=== PATIENT | female | born 1940 | race Caucasian/White ===

== ENCOUNTER → 2016-08-05 | Outpatient (CLI) | payer OTHER, BC ==
[~2016-08-05] MED LIST: GADOBUTROL 10 ML VIAL IVP ONE
--- NOTE | 2016-08-05 10:33 | MR ---
MRI of the Brain (Without and With Contrast) at 0808 Hours Clinical Indications: R51, severe headache. Technique: T1-weighted images were acquired axially and sagittally from the foramen magnum to the ve rtex. Axial fast inversion-recovery, fast T2-weighted, and diffusion-weighted axial images were obta ined without contrast. Postcontrast axial and coronal images with the uneventful intravenous administ ration of 6 mL Gadavist contrast. Findings: The ventricles, cisterns, and sulci are widened consistent with atrophy. No hydrocephalus , midline shift, herniation, or epidural/subdural hematomas. No intracranial hemorrhage or masses. Di ffusion-weighted images demonstrate no acute infarct. Cerebellar tonsils are in normal position. Pitu itary gland is normal in size. Normal signal flow-void in the superior sagittal sinus, basilar artery , and bilateral internal carotid arteries indicating patency. Several nonspecific bilateral cerebral white matter and brainstem hyperintense T2/FLAIR signal abnormalities without mass effect or enhancem ent. Postcontrast images demonstrate no enhancing lesions or abnormal leptomeningeal enhancement. Par anasal sinuses and mastoid air cells are clear. Postsurgical changes consistent with previous right u ncinectomy and middle turbinectomy. Nasal septal deviation to the left. No sinusitis. Partial visualization of cervical spondylosis at C3-C4, C4-C5 and C5-C6 resulting in cord compression at C4-C5. Impression: 1. Mild atrophy. 2. No acute hemorrhage, definite acute infarct, hydrocephalus or mass effect. 3. Multiple nonspecific hyperintense T2/FLAIR signal abnormalities in the white matter of bilateral c erebral hemispheres. Differential diagnosis includes severe microvascular ischemic gliosis, post-infe ctious/post-inflammatory sequela, or migraine-related sequela. 4. No hemorrhage, hydrocephalus, sinusitis, or superior sagittal sinus thrombosis. 5. No enhancing lesions or abnormal leptomeningeal enhancement. 6. Severe cervical spondylosis with cord compression at C4-C5. Consider MRI cervical spine for furthe r evaluation.
== END ==
LOC: FIMAGING 07:45
PROVIDERS: ATTEND Internal Medicine
DX: R51 Headache (principal)
CPT/HCPCS: 70553; A9585

== ENCOUNTER → 2016-09-09 | Outpatient (CLI) | payer OTHER, BC | LOC: FIMAGING 07:54 | PROVIDERS: ATTEND Physician Assistant | DX: M50.31 Other cervical disc degeneration, high cervical region (principal); M47.892 Other spondylosis, cervical region; M48.02 Spinal stenosis, cervical region ==

== ENCOUNTER → 2017-12-04 | Outpatient (CLI) | payer OTHER, BC | LOC: FIMAGING 08:20 | PROVIDERS: ATTEND Internal Medicine | DX: M43.12 Spondylolisthesis, cervical region (principal); M48.02 Spinal stenosis, cervical region; M24.28 Disorder of ligament, vertebrae; M50.321 Other cervical disc degeneration at C4-C5 level ==

== ENCOUNTER → 2018-07-13 | Outpatient (CLI) | payer OTHER, BC ==
[~2018-07-13] MED LIST changes: +BUPIVACAINE 0.25% 30 ML SDV ONE; -GADOBUTROL 10 ML VIAL IVP ONE; +IOPAMIDOL (ISOVUE 370) 100 ML BTL IV ONE; +LIDOCAINE 1% 300 MG/30 ML SDV ONE
[2018-07-13 14:22] LABS: PLATELET COUNT 245 10^3/uL (150-400)
== END ==
LOC: FIMAGING 13:31
PROVIDERS: ATTEND Orthopaedic Surgery
PROC: 0M9 Bursae and Ligaments, Drainage (ICD-10-PCS; principal; 2018-07-13)
DX: M16.12 Unilateral primary osteoarthritis, left hip (principal); Z86.19 Personal history of other infectious and parasitic diseases
CPT/HCPCS: 20611; 76882; Q9967

== ENCOUNTER 2018-07-23 08:48 | Inpatient (IN) | payer OTHER, BC ==
[~2018-07-23 08:48] MED LIST changes: -BUPIVACAINE 0.25% 30 ML SDV ONE; -IOPAMIDOL (ISOVUE 370) 100 ML BTL IV ONE; -LIDOCAINE 1% 300 MG/30 ML SDV ONE; +POVIDONE-IODINE 20 ML in SODIUM CL IRRIG SOLUTION 500 ML IRR ONE; +ROPIVACAINE 0.2% 80 MG, EPINEPHrine 0.2 MG, KETOROLAC TROMETHAMINE 30 MG in SYRINGE 0 ML IU ONE; +TRANEXAMIC ACID 1,000 MG in NS 100 ML IV ONE
[2018-07-23] MEDS ORDERED: FAMOTIDINE 20 MG TAB PO ONE (10:01)
[2018-07-23] MEDS ORDERED: ACETAMINOPHEN 325 MG TAB PO ONE (10:01)
[2018-07-23] MEDS ORDERED: DEXAMETHASONE 4 MG/ML VIAL IVP ONE (10:01)
[2018-07-23] MEDS ORDERED: GABAPENTIN 300 MG CAP PO ONE (10:01)
[2018-07-23] MEDS ORDERED: ONDANSETRON 4 MG/2 ML VIAL IVP ONE (10:01)
[2018-07-23] MEDS ORDERED: ceFAZolin 2 GM/DEXTROSE 100 ML IV ONE (10:01)
[2018-07-23] MEDS ORDERED: LR 1,000 ML IV ONE (10:05)
[2018-07-23] MEDS ORDERED: ceFAZolin 1 GM/5 ML SYR ONE (10:18)
[2018-07-23] MEDS ORDERED: EPINEPHrine 1 MG/ML INJ ONE (10:18)
--- NOTE | 2018-07-23 10:38 | PDHPUP ---
History & Physical Update H&P update statement: This history and physical update is based on an assessment of the patient which was completed after admission or registration (within 24 hours), but prior to the surgery/procedure. no change H&P update: no change in patient's condition since H&P completed (no change)
[2018-07-23] MEDS ORDERED: BUPIVACAINE/DEXTROSE 7.5MG/ML 2 ML SPINAL AMP SP ONE (12:26)
[2018-07-23] MEDS ORDERED: DEXAMETHASONE 4 MG/ML VIAL ONE (12:26)
[2018-07-23] MEDS ORDERED: LIDOCAINE 2% 100 MG/5 ML SYR ONE (12:26)
[2018-07-23] MEDS ORDERED: ONDANSETRON 4 MG/2 ML VIAL ONE (12:26)
[2018-07-23] MEDS ORDERED: PROPOFOL/EMULSION 500 MG/50 ML BOTTLE IV ONE ×2 (12:27→14:47)
[2018-07-23] MEDS ORDERED: fentaNYL 100 MCG/2 ML INJ ONE ×2 (12:27→16:48)
[2018-07-23] MEDS ORDERED: MIDAZOLAM 2 MG/2 ML VIAL ONE (13:05)
--- NOTE | 2018-07-23 14:00 | PDANEPAE ---
ANE History of Present Illness left hip djd, here for L CHARLES ANE Past Medical History - Cardiovascular History Hx Hypertension: Yes Hx Arrhythmias: No Hx Chest Pain: No Hx Coronary Artery / Peripheral Vascular Disease: No Hx CHF / Valvular Disease: No Hx Palpitations: No - Pulmonary History Hx COPD: No Hx Asthma/Reactive Airway Disease: No Hx Recent Upper Respiratory Infection: No Hx Oxygen in Use at Home: No Hx Sleep Apnea: No Sleep Apnea Screening Result - Last Documented: Negative - Neurologic History Hx Cerebrovascular Accident: No Hx Seizures: No Hx Dementia: No - Endocrine History Hx Diabetes: No - Renal History Hx Renal Disorders: No - Liver History Hx Hepatic Disorders: No - Neurological & Psychiatric Hx Hx Neurological and Psychiatric Disorders: No - Cancer History Hx Cancer: No - Congenital Disorder History Hx Congenital Disorders: No - GI History Hx Gastrointestinal Disorders: Yes Gastrointestinal History Comment: TENDS TO HAVE CONSTIPATION. HX OF POLYPS - Other Health History Other Health History: ELEVATED EYE PRESSURE. [place] HAND CARPAL TUNNEL SYNDROME. WITH NUMBNESS [place]. CDD - Chronic Pain History Chronic Pain: Yes (LT HIP) - Surgical History Prior Surgeries: SEPTIC LT HIP 2011. RT TOTAL HIP. [place] TOTAL KNEE. TONSILLECTOMY. TUBAL LIGATION/APPY. [place] CATARACT ANE Review of Systems Review of Systems: - Exercise capacity METS (RN): 4 METS ANE Patient History - Allergies Allergies/Adverse Reactions: lisinopril Allergy (Intermediate, Verified 06/28/18 10:29) Other-Enter Comments morphine [Morphine] Allergy (Intermediate, Verified 08/21/15 20:40) PASS OUT Obqogkg-Eod-Hys Reductase Inhibitor Allergy (Intermediate, Verified 08/21/15 20: 40) MUSCLE CRAMPS pantoprazole Allergy (Mild, Verified 08/21/15 20:40) Rash SEASONAL Allergy (Mild, Uncoded 08/21/15 20:40) SNEEZY - Home Medications Home Medications: Latanoprost 0.005% [Xalatan 0.005% (*)] 1 drops EACHEYE HS 08/21/15 [Last Taken 07/22/18] Losartan Potassium [Cozaar 50 mg (*)] 50 mg PO DAILY 06/28/18 [Last Taken ] Naproxen Sodium [Aleve 220 MG (*)] 220 mg PO BID PRN 06/28/18 [Last Taken 1 Week Ago ~07/16/18] - NPO status NPO Since - Liquids (Date): 07/23/18 NPO Since - Liquids (Time): 09:15 NPO Since - Solids (Date): 07/22/18 NPO Since - Solids (Time): 19:00 - Smoking Hx Smoking Status: Former smoker ANE Labs/Vital Signs - Vital Signs Blood Pressure: 186/83 Heart Rate: 65 Respiratory Rate: 14 O2 Sat (%): 96 Height: 156.21 cm Weight: 56.699 kg ANE Physical Exam - Airway Neck exam: FROM Mallampati Score: Class 2 Mouth exam: normal dental/mouth exam - Pulmonary Pulmonary: no respiratory distress, clear to auscultation - Cardiovascular Cardiovascular: regular rate and rhythym, no murmur, rub, or gallop - ASA Status ASA Status: II ANE Anesthesia Plan Anesthesia Plan: GA with mask, spinal Total IV Anesthesia: Yes
[2018-07-23] MEDS ORDERED: MIDAZOLAM 2 MG/2 ML VIAL IVP ONE (14:01)
[2018-07-23] MEDS ORDERED: PROMETHAZINE HCL 25 MG/ML INJ IVP PRN ×2 (15:26→15:46)
[2018-07-23] MEDS ORDERED: MEPERIDINE 25 MG/0.5 ML AMP IVP PRN (15:26)
[2018-07-23] MEDS ORDERED: ACETAMINOPHEN 500 MG TAB PO PRN (15:26)
[2018-07-23] MEDS ORDERED: NALOXONE HCL 0.4 MG/ML INJ IVP PRN (15:26)
[2018-07-23] MEDS ORDERED: LR 500 ML IV PRN (15:26)
[2018-07-23] MEDS ORDERED: DIAZEPAM 5 MG/ML 1 ML SYR IVP PRN (15:26)
[2018-07-23] MEDS ORDERED: HYDROmorphONE/DILAUDID 2 MG/ML INJ IVP PRN (15:26)
[2018-07-23] MEDS ORDERED: oxyCODONE IR 5 MG TAB PO PRN ×2 (15:26→15:46)
[2018-07-23] MEDS ORDERED: fentaNYL 100 MCG/2 ML INJ IVP PRN (15:26)
[2018-07-23] MEDS ORDERED: BISACODYL 10 MG SUPP PR PRN (15:46)
[2018-07-23] MEDS ORDERED: diphenhydrAMINE 25 MG CAP PO PRN (15:46)
[2018-07-23] MEDS ORDERED: CYCLOBENZAPRINE 10 MG TAB PO PRN (15:46)
[2018-07-23] MEDS ORDERED: METOCLOPRAMIDE 10 MG/2 ML VIAL IVP PRN (15:46)
[2018-07-23] MEDS ORDERED: MAGNESIUM HYDROXIDE 30 ML UDCUP PO PRN (15:46)
[2018-07-23] MEDS ORDERED: POLYETHYLENE GLYCOL 3350 17 GM PKT PO PRN (15:46)
[2018-07-23] MEDS ORDERED: PROMETHAZINE HCL 25 MG SUPPR PR PRN (15:46)
[2018-07-23] MEDS ORDERED: ONDANSETRON DISINTEGRATING 4 MG TAB PO PRN (15:46)
[2018-07-23] MEDS ORDERED: DIPHENOXYLATE/ATROPINE LOMOTIL 1 TAB PO PRN (15:46)
[2018-07-23] MEDS ORDERED: ONDANSETRON 4 MG/2 ML VIAL IVP PRN (15:46)
[2018-07-23] MEDS ORDERED: TEMAZEPAM 15 MG CAP PO PRN (15:46)
[2018-07-23] MEDS ORDERED: LACTULOSE 20 GM/30 ML UDCUP PO PRN (15:46)
--- NOTE | 2018-07-23 15:49 | POSTANESTH ---
Post Anesthetic Evaluation Cardiovascular Status: Normal, Stable Respiratory Status: Normal, Stable Level of Consciousness/Mental Status: Can Participate in Eval, Moderately Sleepy Pain Control: Adequate, Prn Tx Ordered Nausea/Vomiting Control: Adequate, Prn Tx Ordered Complications Possibly Related to Anesthesia: None Noted
[2018-07-23] MEDS ORDERED: KETOROLAC 15 MG/1 ML SDV IVP ONE (15:52)
[2018-07-23] MEDS ORDERED: LR 1,000 ML IV SCH (16:00)
[2018-07-23] MEDS ORDERED: KETOROLAC 15 MG/1 ML SDV ONE (16:20)
--- NOTE | 2018-07-23 16:22 | GOP ---
DATE OF OPERATION: 07/23/2018 SURGEON: Bertrand Corral MD ELIGIBILITY COUNSELOR: DINA Casas LSA ANESTHESIOLOGIST: Isabel Bahena DO PREOPERATIVE DIAGNOSIS: Left hip osteoarthrosis. POSTOPERATIVE DIAGNOSIS: Left hip osteoarthrosis. PROCEDURE PERFORMED: Left total hip arthroplasty. FINDINGS: SPECIMENS: Include excised bone. ESTIMATED BLOOD LOSS: About 40 cc. INDICATIONS: The patient is a 78-year-old female who presents with history, exam, and x-rays consist ent with a severely arthritic left hip. The left hip has significant history, including joint sepsis without any hardware in place back in 2011, requiring I and D, washout of the hip, and antibiotics. She has also had a compression fracture through the femoral neck. Laboratory workup has been negati ve for infection, normal sedimentation rate, normal C-reactive protein. The hip has been aspirated a nd there are no organisms and no growth on culture. She wants to proceed now with hip replacement. She is engz-wk-suet with rimming osteophytes and considerable hip pain. DESCRIPTION OF PROCEDURE: The patient was taken to the operating room and a spinal anesthetic was pr ovided by Anesthesia. She received preoperative antibiotics and tranexamic acid. She was rolled ont o her right side on a [employer] pegboard and her torso and pelvis well supported by the pegs. The lef t hip and lower extremity prepped and draped free in the usual fashion with chlorhexidine. I utilized the previous gently curving incision for a posterior approach to the hip. Dissection was carried down the subcutaneous tissue. I incised through the IT band through the trochanteric bursa i nto the gluteal fascia. There was, as expected, some scar tissue, but not heavy scar. I was able to identify the posterior capsule and external rotators that were opened as a thick, somewhat scarred l rosendo and the edges tagged. I placed a pin above the acetabulum and a drill point in the trochanter f or a predislocation leg measurement. Of note, she clinically is close to 2 cm difference in leg celso th short on the left side, radiographically between 8 and 10 mm through the hip area, so my intention was to lengthen her somewhere in the 7 to 10 mm range. The hip was gently dislocated. I made a neck cut, leaving about 10 to 12 mm of femoral neck. I plac ed acetabular retractors and clean the rim of the acetabulum to visualize the floor. I reamed brayan ng with a small reamer about a 40 mm reamer deepening the acetabulum down to the true floor, then pro gressively reamed up to 47 and chose a 48 mm G7 Biomet OsseoTi acetabular shell, which was press-fit in about 40 degrees of opening angle, about 15 to 20 degrees of anteversion. It did not require any screws. I placed a trial liner. The femoral side was found to be quite small, I mean gained entranc e to the canal with a box chisel and an awl. I was really only able to seat the smallest of the Tape rloc broaches, which is a size 4. I chose a size 4 Taperloc complete primary femoral porous-coated s tem, leaving it a little proud at the neck, with excellent fit, very stable in terms of rotation. Then, I started doing trial reductions. I found that with a G7 acetabular neutral liner in place, a -3, 32 mm diameter head provided some lengthening of about 7 mm, did not overly tighten the tissue, b ut clinically produced a nice stable result and gained a significant portion of her length back. I d id not want to over tighten the structures around the hip, including the sciatic nerve, so I placed t he neutral liner as mentioned, and used the 32 diameter ceramic head, -3 neck. The hip was reduced. Had excellent stability. I used antibiotic irrigation, including a Betadine rinse. I closed the capsule and rotators as a lay er into 2 holes drilled in the posterior trochanter and the sutures in those structures tied with mul tiple knots. This provided a good soft tissue repair. I made sure there was no bleeding before clos ing the fascia with interrupted 0 [place] [id number] sutures. The subcutaneous tissue was calos sed with 2-0 and 3-0 Monocryl, and the skin with a subcuticular Quill suture, further reinforced with tissue glue, a Telfa, and a Tegaderm. COMPLICATIONS: There were no complications. DRAINS: None. COUNTS: All counts were correct and the patient was taken in stable condition to recovery. My contract administrative assistant was a medical necessity for this case. He provided leg positioning and soft ti ssue traction. COMPONENTS: This is a Biomet total hip system. The femoral stem is a Taperloc complete femoral poro us-coated stem size 4, the acetabulum is a G7 OsseoTi acetabular shell. The liner is neutral. It i s E1 antioxidant infused, and the head is ceramic, 32 mm in diameter. The neck is -3. /[id number]/MODL
[2018-07-23] MEDS: ACETAMINOPHEN 325 MG TAB PO SCH ×2 (18:15→22:59)
[2018-07-23] MEDS ORDERED: LATANOPROST 0.005% 2.5 ML OPHT DROPS EACHEYE SCH (21:00)
[2018-07-23] MEDS: FAMOTIDINE 20 MG TAB PO SCH (22:37)
[2018-07-23] MEDS: ASPIRIN 81 MG CHEWABLE TAB PO SCH (22:38)
[2018-07-23] MEDS: SENNOSIDES/DOCUSATE SODIUM TAB PO SCH (22:38)
[2018-07-23] MEDS: ceFAZolin 2 GM/DEXTROSE 100 ML IV SCH (22:39)
[2018-07-23] MEDS ORDERED: LOSARTAN POTASSIUM 50 MG TAB PO SCH (22:45)
[2018-07-24] MEDS: ACETAMINOPHEN 325 MG TAB PO SCH (05:31)
[2018-07-24] MEDS: ceFAZolin 2 GM/DEXTROSE 100 ML IV SCH (05:32)
[2018-07-24 07:36] VITALS: BP 101/63
--- NOTE | 2018-07-24 08:38 | SOAPPROG ---
SOAP Progress Note Assessment/Plan: Assessment: 07/24/18 POST OP #1 L CHARLES, Hct 32, pain controlled, xray fine,has been up Plan: 07/24/18 08:36 home today asa,tyl,PT outpt Objective: Vital Signs Temp Pulse Resp BP Pulse Ox 36.7 C 67 16 101/63 94 07/24/18 07:35 07/24/18 07:35 07/24/18 07:35 07/24/18 07:35 07/24/18 07:35 Laboratory Results 07/24/18 04:46 07/23/18 07/24/18 07/25/18 05:59 05:59 05:59 Intake Total 2009 Output Total 1280 300 Balance 730 -300 ICD10 Worksheet Patient Problems: Problems Problem Status Onset Hypertensive urgency Acute
[2018-07-24] MEDS: ASPIRIN 81 MG CHEWABLE TAB PO SCH (08:43)
[2018-07-24] MEDS: SENNOSIDES/DOCUSATE SODIUM TAB PO SCH (08:43)
[2018-07-24] MEDS: FAMOTIDINE 20 MG TAB PO SCH (08:44)
--- NOTE | 2018-07-24 11:31 | ASMTLACE ---
LACE Length of stay for Answers: 2 days current admission Acuity / Level of Answers: No Care: Did the patient have an inpatient admission? Comorbidities - select Answers: Opioid dependence all that apply / Chronic pain Other Notes: HTN # of Emergency department Answers: 0 visits in the last 6 months Score: 7 Date Signed: 07/24/2018 11:30 AM Electronically Signed By:MATHEUS Bro
--- NOTE | 2018-07-24 11:32 | ASMTCMCOM ---
CM Note CM Note Notes: Pt medically stable for d/c, MD and PT rec outpatient. Pt to stay with friend who has no stairs. No CM d/c needs identified. Date Signed: 07/24/2018 11:31 AM Electronically Signed By:MATHEUS Bro
--- NOTE | 2018-07-26 09:57 | PDMN ---
Medical Necessity Medical necessity: [facility] [place] S560 [place] Arthroplasty, A-2 days: 78 yo s/p L CHARLES, [facility] IP only
== END 2018-07-24 10:13 | disposition home or self-care (01) | DRG 470 ==
LOC: F3N 09:48 → OBSVTOIN 16:00 → F3N 17:04
PROVIDERS: ADMIT Orthopaedic Surgery; ATTEND Orthopaedic Surgery
PROC: 0SRB0JA Replacement of Left Hip Joint with Synthetic Substitute, Uncemented, Open Approach (ICD-10-PCS; principal; 2018-07-23 12:00)
DX: M16.12 Unilateral primary osteoarthritis, left hip (principal); I10 Essential (primary) hypertension; Z87.891 Personal history of nicotine dependence
CPT/HCPCS: 97161-GP; 97165-GO; 97535-GO; J0171; J0690; J1100; J1885; J2001; J2250; J2405; J2704; J2795; J3010

== ENCOUNTER → 2018-08-17 | Outpatient (CLI) | payer OTHER, BC | LOC: BMCIMAGING 13:55 | PROVIDERS: ATTEND Internal Medicine | DX: R06.02 Shortness of breath (principal); R05 Cough; R06.2 Wheezing ==